=== PATIENT | female | born 1960 | race Caucasian/White ===

== ENCOUNTER 2018-09-05 07:37 | Day surgery (SDC) | payer OTHER ==
[~2018-09-05 07:37] MED LIST: PROPOFOL INJ 200 MG/20 ML VIAL IV ONE
[2018-09-05] MEDS ORDERED: ONDANSETRON HCL INJ/PF 4 MG/2 ML SDV ONE (08:02)
[2018-09-05 09:39] VITALS: BP 123/67
--- NOTE | 2018-09-05 15:12 | Operative Report ---
Operative Report DATE OF SURGERY: 09/05/18 Operative Report: The risks benefits and alternatives of the procedure explained to the patient in detail and informed consent is obtained.A GIF Olympus video scope was inserted into the patient's mouth and hypopharynx, the esophagus is identified intubated and insufflated ,the scope was then advanced through the esophagus stomach and duodenum, retroflexion maneuver is done, the esophagus stomach and first and second portions of the duodenum examined. PREOPERATIVE DIAGNOSIS: Dyspepsia, gastroesophageal reflux disease POSTOPERATIVE DIAGNOSIS: Gastritis status post biopsy rule out Helicobacter pylori. Hiatal hernia. Schatzki's ring that is broken OPERATION: EGD with biopsy SURGEON: YUVAL NELSON ANESTHESIA: LMAC TISSUE REMOVED OR ALTERED: As noted above. COMPLICATIONS: None. ESTIMATED BLOOD LOSS: None. INTRAOPERATIVE FINDINGS: As noted above. PROCEDURE: Patient tolerated the procedure well. No immediate postprocedure complications are noted. Patient discharged in good condition. Discharge date 09/05/2018. Discharge diet: Regular. Discharge activity: Regular. 2-3-week follow-up to discuss findings. Patient is instructed to call the office or proceed to the emergency room should there be any further problems or questions. wait on the pathology.
== END 2018-09-05 09:40 | disposition home or self-care (01) ==
LOC: END 07:37
PROVIDERS: ATTEND Internal Medicine Gastroenterology
DX: K29.50 Unspecified chronic gastritis without bleeding (principal); K44.9 Diaphragmatic hernia without obstruction or gangrene; K22.2 Esophageal obstruction; K21.9 Gastro-esophageal reflux disease without esophagitis; Z79.899 Other long term (current) drug therapy; Z88.8 Allergy status to other drugs, medicaments and biological substances
CPT/HCPCS: 43239; 88342 ×2; 88305 ×2; J2405; J2704; 731

== ENCOUNTER → 2019-02-07 | Day surgery (SDC) | payer OTHER ==
--- NOTE | 2019-02-07 16:02 | RADIOLOGY REPORT (SQ) ---
EXAM DESCRIPTION: U/S BIOPSY THYROID COMPLETED DATE/TIME: 02/07/2019 2:44 pm REASON FOR STUDY: R22.1 LOCALIZED SWELLING, MASS AND LUMP, NECK R22.1 LOCALIZED SWELLING, MASS AND LUMP, NECK COMPARISON: Outside CT soft tissue neck [facility] TECHNIQUE: The procedure was discussed with the patient and written informed consent obtained. A ti meout was performed to confirm the procedure and patient's identity. The skin of the neck was preppe d and draped in sterile fashion and 0.5 mL of 1% lidocaine administered for local anesthesia. Under sonographic guidance, fine needle aspiration biopsy was per formed of the mass in the superficial lobe of the left parotid gland. The nodule of concern is in the inferior aspect, superficial lobe left parotid gland. This is well-c ircumscribed with lobular borders, hypoechoic with thin internal septations and internal color flow. This nodule measures 1.8 x 1 cm in size. Five separate aspirations were performed. Hemostasis was obtained with direct manual compression. T here were no immediate complications. LIMITATIONS: None. FINDINGS: PATHOLOGY: Pending. IMPRESSION: ULTRASOUND-GUIDED FINE NEEDLE ASPIRATE PERFORMED OF A 1.8 X 1 CM MASS IN THE SUPERFICIAL LOBE OF LEFT PAROTID GLAND. PATHOLOGY PENDING AT THE TIME OF DICTATION. COMMENT: Patient medication list reviewed: Yes- Quality ID# [id number]:Eligible professional attests to doc umenting in the medical record they obtained, updated, or reviewed the patient's current medications. TECHNICAL DOCUMENTATION: JOB ID: [id number] [employer]- All Rights Reserved Reading location - IP/workstation name: [email or web address]
== END ==
LOC: RAD 12:05
PROVIDERS: ATTEND Otolaryngology
DX: R22.1 Localized swelling, mass and lump, neck (principal)
CPT/HCPCS: 60100; 88173; 88305

== ENCOUNTER 2019-02-22 09:31 | Day surgery (SDC) | payer OTHER ==
--- NOTE | 2019-02-20 15:53 | EKG REPORT ---
SEVERITY:- ABNORMAL ECG - SINUS RHYTHM LEFT ANTERIOR FASCICULAR BLOCK : Confirmed by: Mayte Benedict MD 20-Feb-2019 15:51:23
[~2019-02-22 09:31] MED LIST changes: +CEFAZOLIN SODIUM 2 GM in DEXTROSE 5%-WATER 100 ML IV PRN; +DEXAMETHASONE SOD PHOSPHATE INJ 4 MG/1 ML VIAL ONE; +HYDROMORPHONE HCL INJ/PF 2 MG/ML AMPULE ONE; +LACTATED RINGERS 1000 ML IV PRN; +LIDOCAINE 0.5% INJ-PF (5 MG/ML) 50 ML SDV SUBCUT PRN; +LIDOCAINE 2%/EPINEPHRINE INJ 1.7 ML CARTRIDGE ONE; +MIDAZOLAM 2 MG/2 ML INJ ONE; +ONDANSETRON HCL INJ/PF 4 MG/2 ML SDV ONE; +OXYMETAZOLINE HCL 0.05% NASAL SPRAY 15 ML BOTTLE ONE
[2019-02-22] MEDS ORDERED: BUPIVACAINE HCL 0.5%/EPI 1:200000 INJ 1.8 ML CARTRIDGE ONE (11:31)
[2019-02-22] MEDS ORDERED: LIDOCAINE 2%/EPINEPHRINE INJ 1.7 ML CARTRIDGE ONE (11:31)
[2019-02-22] MEDS: BUPIVACAINE HCL 0.5%/EPI 1:200000 INJ 1.8 ML CARTRIDGE ONE ×2 (12:15→13:16)
[2019-02-22] MEDS ORDERED: EPHEDRINE SULFATE INJ 50 MG/1 ML AMPULE ONE (12:33)
[2019-02-22] MEDS ORDERED: SUCCINYLCHOLINE CHLORIDE INJ 200 MG/10 ML VIAL ONE (13:46)
[2019-02-22] MEDS ORDERED: PHENYLEPHRINE HCL INJ/PF 10 MG/1 ML SDV ONE (13:46)
[2019-02-22] MEDS ORDERED: GLYCOPYRROLATE 1 MG/5 ML VIAL ONE (13:46)
[2019-02-22] MEDS ORDERED: ONDANSETRON HCL INJ/PF 4 MG/2 ML SDV IV PRN ×3 (13:57→18:19)
[2019-02-22] MEDS ORDERED: MEPERIDINE HCL/PF INJ 25 MG/1 ML DISP.SYRIN IV PRN ×2 (13:57→17:49)
[2019-02-22] MEDS ORDERED: MORPHINE SULFATE 10 MG/ML INJ IV PRN ×3 (13:57→18:19)
[2019-02-22] MEDS ORDERED: OXYCODONE-ACETAMINOPHEN 5-325 MG TABLET PO PRN ×4 (13:57→17:49)
[2019-02-22] MEDS ORDERED: DIPHENHYDRAMINE HCL 50 MG/ML VIAL IV PRN ×2 (13:57→17:49)
[2019-02-22] MEDS ORDERED: PROMETHAZINE HCL INJ 25 MG/1 ML VIAL IV PRN ×4 (13:57→18:19)
[2019-02-22] MEDS ORDERED: FENTANYL CITRATE INJ/PF 100 MCG/2 ML AMPUL IV PRN ×6 (13:57→17:49)
[2019-02-22] MEDS: PROMETHAZINE HCL INJ 25 MG/1 ML VIAL ONE ×2 (18:15→18:30)
[2019-02-22] MEDS ORDERED: RINGERS SOLUTION,LACTATED 1,000 ML IV PRN (18:19)
[2019-02-22] MEDS ORDERED: HYDROCODONE/ACETAMINOPHEN 5-325 MG TABLET PO PRN (18:19)
[2019-02-22] MEDS ORDERED: SCOPOLAMINE HYDROBROMIDE 1.5 MG PATCH.TD72 ONE (18:20)
[2019-02-23 00:30] VITALS: BP 119/63
--- NOTE | 2019-02-25 12:30 | OPERATIVE REPORT E ---
Operative Report NAME: NAHID JONES : 1960 AGE: 59Y DATE OF SURGERY: 02/22/2019 ROOM: 533 PREOPERATIVE DIAGNOSES: 1. LEFT PAROTID MASS. 2. CHRONIC LEFT FACIAL PAIN AND FULLNESS. POSTOPERATIVE DIAGNOSES: 1. LEFT PAROTID MASS. 2. CHRONIC LEFT FACIAL PAIN AND FULLNESS. OPERATIONS: 1. Left parotidectomy. 2. Intraoperative NIM facial nerve monitoring. PRIMARY SURGEON OF RECORD: TERRELL HUYNH D.O. CREDIT ANALYST SURGEON: CECI JORDAN M.D. ANESTHESIA: General endotracheal tube. ANESTHESIA STAFF: PUSHPA Crump. ESTIMATED BLOOD LOSS: 20 mL. FLUIDS: 1700 mL. URINE OUTPUT: 350 mL. CREDIT ANALYST SURGEON: Ceci Jordan MD. COMPLICATIONS: None. DRAINS: None. SPONGE COUNT: Verified. NEEDLE COUNT: Verified. MATERIALS FORWARDED SPECIMEN: Left parotid mass with a cuff of surrounding normal appearing parotid tissue, all measuring greater than 5 x 5 cm. FINDINGS: 1. Left parotid mass involving the tail of parotid aspect as well as into the main substance of the parotid gland. The parotid mass was intact with a surrounding cuff of normal parotid tissue. 2. The left facial nerve was dissected out, identified and preserved with appropriate stimulation at 1 mAmp throughout, and at the end of the case. 3. There was no concerning lymphadenopathy. INDICATIONS: This is a 58-year-old white female patient who was seen, evaluated and followed in the [facility] office. The patient had been referred for and she complained of an enlarging left facial/parotid mass. The patient underwent CT facial/head imaging with a left parotid mass identified. She also underwent ultrasound-guided fine needle aspiration biopsy of the mass with oncocytes identified, with concern for the possibility of a pleomorphic adenoma versus oncocytoma. The patient had no lymphadenopathy noted clinically or on CT imaging. There was extensive discussion with the patient with recommendation and plan to proceed with a left parotidectomy with left facial nerve monitoring with the NIM system. The procedures and all of their risks and complications were all discussed in detail with the patient. She voiced an understanding of the described surgical plan, agreed to proceed, and consent was obtained. PROCEDURE: The patient was taken to the main operating room and was placed on the operating room table in the supine position. Appropriate monitors were placed. Using mask and IV access, general anesthesia was established. The patient was transorally intubated without difficulty. The patient was then positioned and prepped for left parotid surgery. The NIM monitoring system was set up and tested appropriately before beginning the case. The patient had a left parotid incision marked and this area was infiltrated with local anesthetic with epinephrine. The patient was then positioned and prepped for left parotid surgery. At this point, the patient underwent an incision with a #15 blade scalpel, followed by elevation of the skin and soft tissue facial flap, with exposure of the parotid masseteric fascia. The flap was fully mobilized with the mass being palpable. At this point, the tail of the parotid/lateral parotid margin was from the SCM as well as from the EAC cartilage. The posterior belly of the digastric muscle was identified clearly. Next, the facial nerve main trunk was exposed and stimulated at 1 mAmp. Dissection was carried out to mobilize the parotid mass and continued to identify facial nerve branches and preserve them. The mass was fully mobilized with a surrounding cuff of normal-appearing parotid tissue. Throughout the case, bipolar electrocautery and plasma J-hook cautery were utilized. The mass was passed off for permanent pathology evaluation. The wound site was thoroughly irrigated, with adequate hemostasis being achieved with bipolar electrocautery. All identified facial nerve branches were stimulated at the end of the case and tested appropriately at 1 mAmp. There was Surgicel placed into the wound bed overlying the facial nerve and posterior belly of the digastric muscle. At this point, a SMAS flap was mobilized and reapproximated along the dense soft tissues in the area of the EAC and SCM fascia to establish contour following the tumor mass resection. The skin and soft tissue envelope/flap were brought back into position and secured with suture. The skin margins were appropriately trimmed. Continuation of the complex wound site closure was carried out in layered fashion with Monocryl suture being utilized for deep subcutaneous reapproximation. The deep dermal layers were also reapproximated with Monocryl suture. Next, 6-0 Prolene suture was utilized to reapproximate the skin margins. The skin was next cleaned and dried, followed by placement of Xeroform gauze over the incision sites, and this was followed by placement of a fluffs pressure dressing and facelift compression dressing. The patient was next returned to the anesthesia staff and was allowed to emerge from general anesthesia. The patient was extubated in the main operating room and was then transported to the post anesthesia recovery unit in stable condition. There were no complications. DICTATING PHYSICIAN: TERRELL HUYNH D.O. [id number] PHY#: [id number] ID: [id number] JOB#: [id number] ACCT: [id number] cc:TERRELL HUYNH D.O. > MTDD
== END 2019-02-23 08:21 | disposition home or self-care (01) ==
LOC: OROUT 09:31 → 5 20:23 → OROUT 02-23 08:21
PROVIDERS: ATTEND Otolaryngology
DX: D11.0 Benign neoplasm of parotid gland (principal); K11.8 Other diseases of salivary glands; M54.2 Cervicalgia; F17.210 Nicotine dependence, cigarettes, uncomplicated; J01.91 Acute recurrent sinusitis, unspecified; J30.9 Allergic rhinitis, unspecified; E07.89 Other specified disorders of thyroid; J34.1 Cyst and mucocele of nose and nasal sinus
CPT/HCPCS: 93005; 88307 ×2; 93010; 42410; J2250; J3490 ×5; J0690; J1100; J1170; J2370; J2550; J0330; J2405; J7060; J2704; 88305